=== PATIENT | female | born 1955 ===

== ENCOUNTER 2021-07-03 12:00 | Inpatient (IN) | payer OTHER ==
[~2021-07-03] VITALS: Ht 162.6 cm; Wt 68.0 kg
[2021-07-03] MEDS ORDERED: HORIZANT300 MG PO (14:10)
[2021-07-03] MEDS ORDERED: PREVASTATIN PO (14:12)
[2021-07-03] MEDS ORDERED: CAMBIA50 MG (14:13)
[2021-07-03] MEDS ORDERED: TIADYLT ER120 MG PO (14:13)
[2021-07-03] MEDS ORDERED: TIZA PO (14:14)
[2021-07-03] MEDS ORDERED: [UNRECOGNIZED DRUG - OTHER] PO (14:15)
[2021-07-06] MEDS ORDERED: MEDROLPACK PO (07:18)
[2021-07-06] MEDS ORDERED: DIAZEPAM5 MG PO ×2 (07:18→07:33)
[2021-07-06] MEDS ORDERED: ACETAMINOPHEN-1 EAC2 PO (07:18)
[2021-07-06] MEDS ORDERED: ZOFRAN8 MG PO (07:18)
[2021-07-06] MEDS ORDERED: COLACE100 MG PO (07:19)
== END 2021-07-07 13:00 | disposition home or self-care (01) | DRG 473 ==
LOC: O/R 07-06 05:10 → PED 07-06 05:10 → SURH 07-06 07:00 → PED 07-06 11:47 → SURH 07-06 12:00 → PED 07-07 13:00
PROVIDERS: ADMIT Orthopaedic Surgery Orthopaedic Surgery of the Spine; ATTEND Orthopaedic Surgery Orthopaedic Surgery of the Spine
PROC: 07DS3ZZ Extraction of Vertebral Bone Marrow, Percutaneous Approach (ICD-10-PCS; 2021-07-06)
PROC: 0RG20A0 Fusion of 2 or more Cervical Vertebral Joints with Interbody Fusion Device, Anterior Approach, Anterior Column, Open Approach (ICD-10-PCS; principal; 2021-07-06 07:00)
DX: M50.023 Cervical disc disorder at C6-C7 level with myelopathy (principal)

== ENCOUNTER 2023-07-23 11:45 | Inpatient (IN) | payer OTHER ==
[~2023-07-23] VITALS: Ht 162.6 cm; Wt 43.5 kg
[~2023-07-23 11:45] MED LIST: ACETAMINOPHEN-1 EAC2 PO; CAMBIA50 MG; COLACE100 MG PO; DIAZEPAM5 MG PO; HORIZANT300 MG PO; MEDROLPACK PO; PREVASTATIN PO; TIADYLT ER120 MG PO; TIZA PO; ZOFRAN8 MG PO; [UNRECOGNIZED DRUG - OTHER] PO
[2023-07-23] MEDS ORDERED: HORIZANT600 MG PO (15:53)
[2023-07-23] MEDS ORDERED: LIPITOR40 MG PO (15:54)
[2023-07-30] MEDS ORDERED: PRAVASTATIN SOD40 MG PO (08:00)
[2023-07-30] MEDS ORDERED: ALEVE220 MG (08:04)
[2023-07-30] MEDS ORDERED: ACETAMINOPHEN-1 EAC2 PO (09:18)
[2023-07-30] MEDS ORDERED: MEDROLPACK PO (09:18)
[2023-07-30] MEDS ORDERED: ZOFRAN8 MG PO (09:19)
[2023-07-30] MEDS ORDERED: COLACE100 MG PO (09:19)
[2023-07-30] MEDS ORDERED: AMOX-CLAV 875-1 EACH PO (09:19)
[2023-07-30] MEDS ORDERED: GABAPENTIN100 M2 PO (09:19)
[2023-07-30] MEDS ORDERED: NEURONTIN800 MG PO (09:20)
[2023-07-31 07:45] LABS: HEMATOCRIT 31.9 % (36.0-45.00); HEMOGLOBIN 10.6 g/dL (12.0-15.00); MEAN CORPUSCULAR HEMOGLOBIN 31.1 pg (27.00-32.0); MEAN CORPUSCULAR HGB CONC 33.1 g/dl (32.0-36.0); PLATELET COUNT 132 K/uL (150-450); RED CELL DISTRIBUTION WIDTH 14.9 % (11.5-14.5)
[2023-07-31 08:32] LABS: CALCIUM 7.6 mg/dL (8.5-10.1); CREATININE SERUM 0.38 mg/dL (0.55-1.02); GFR 167.42; POTASSIUM 3.87 mEq/L (3.5-5.1)
== END 2023-08-01 20:17 | DRG 455 ==
LOC: EDSTATUS 11:45 → ADM 11:45 → O/R 07-30 06:10 → SURG 07-30 06:10 → SURH 07-30 11:45 → SURG 07-30 12:07 → SURH 07-31 19:30 → SURG 07-31 20:43
PROVIDERS: ADMIT Orthopaedic Surgery Orthopaedic Surgery of the Spine; ATTEND Orthopaedic Surgery Orthopaedic Surgery of the Spine
PROC: 0SG1071 Fusion of 2 or more Lumbar Vertebral Joints with Autologous Tissue Substitute, Posterior Approach, Posterior Column, Open Approach (ICD-10-PCS; 2023-07-30)
PROC: 0ST20ZZ Resection of Lumbar Vertebral Disc, Open Approach (ICD-10-PCS; 2023-07-30)
PROC: 0QB30ZZ Excision of Left Pelvic Bone, Open Approach (ICD-10-PCS; 2023-07-30)
PROC: 07DR0ZZ Extraction of Iliac Bone Marrow, Open Approach (ICD-10-PCS; 2023-07-30)
PROC: 4A1104G Monitoring of Peripheral Nervous Electrical Activity, Intraoperative, Open Approach (ICD-10-PCS; 2023-07-30)
PROC: XRGC0R7 Fusion of 2 or more Lumbar Vertebral Joints using Custom-Made Anatomically Designed Interbody Fusion Device, Open Approach, New Technology Group 7 (ICD-10-PCS; principal; 2023-07-30 11:45)
DX: M48.062 Spinal stenosis, lumbar region with neurogenic claudication (principal); M51.36 Other intervertebral disc degeneration, lumbar region

== ENCOUNTER 2023-08-19 21:55 | Emergency (ER) | payer OTHER ==
[~2023-08-19] VITALS: Ht 162.6 cm; Wt 67.1 kg
[~2023-08-19 21:55] MED LIST changes: +ALEVE220 MG; +AMOX-CLAV 875-1 EACH PO; +GABAPENTIN100 M2 PO; +HORIZANT600 MG PO; +LIPITOR40 MG PO; +NEURONTIN800 MG PO; +PRAVASTATIN SOD40 MG PO
[2023-08-19 23:25] LABS: HEMATOCRIT 35.3 % (36.0-45.00); HEMOGLOBIN 11.8 g/dL (12.0-15.00); MEAN CELL VOLUME 93.5 fL (80.00-100.00); MEAN CORPUSCULAR HEMOGLOBIN 31.2 pg (27.00-32.0); MEAN CORPUSCULAR HGB CONC 33.4 g/dl (32.0-36.0); PLATELET COUNT 206 K/uL (150-450); RED BLOOD COUNT 3.78 M/uL (4.00-6.00); RED CELL DISTRIBUTION WIDTH 15.6 % (11.5-14.5)
[2023-08-20 00:31] LABS: ALBUMIN 3.1 gm/dL (3.4-5.0); BILIRUBIN TOTAL 0.33 mg/dL (0.3-1.2); CALCIUM 8.8 mg/dL (8.5-10.1); CREATININE SERUM 0.6 mg/dL (0.55-1.02); POTASSIUM 3.96 mEq/L (3.5-5.1); TOTAL PROTEIN 6.1 gm/dL (6.4-8.2)
[2023-08-20 00:32] LABS: GFR 98.83
== END 2023-08-20 00:31 | disposition home or self-care (01) ==
LOC: ER 21:55
PROVIDERS: General Practice
DX: M54.9 Dorsalgia, unspecified (principal); R11.2 Nausea with vomiting, unspecified
CPT/HCPCS: 36415; 96365; 96372; 99284; J1885; J2405; J3301; J3490

== ENCOUNTER 2024-10-21 12:45 | Inpatient (IN) | payer OTHER ==
[~2024-10-21] VITALS: Ht 162.6 cm; Wt 66.7 kg
[2024-10-27] MEDS ORDERED: CEFAZOLIN SODIUM 1,000 MG VIAL ONE (14:42)
[2024-10-27] MEDS ORDERED: METHYLPREDNISOLONE SOD SUCC 125 MG VIAL ONE (15:09)
[2024-10-27] MEDS ORDERED: METHYLPREDNISOLONE ACETATE 80 MG/ML VIAL ONE (15:09)
[2024-10-27] MEDS ORDERED: HEMOSTATIC MATRIX WITH THROMBIN KIT TOP ONE (15:10)
[2024-10-27] MEDS ORDERED: VANCOMYCIN HCL 1,000 MG VIAL ONE (15:10)
[2024-10-27] MEDS ORDERED: MEDROLPACK PO (15:11)
[2024-10-27] MEDS ORDERED: COLACE100 MG PO (15:11)
[2024-10-27] MEDS ORDERED: ACETAMINOPHEN-1 EAC2 PO (15:11)
[2024-10-27] MEDS ORDERED: ONDANSETRON ODT8 MG PO (15:11)
[2024-10-27] MEDS ORDERED: MORPHINE SULFATE 4 MG/ML VIAL IV ONE ×2 (17:30→18:00)
[2024-10-27] MEDS ORDERED: ACETAMINOPHEN 500 MG GEL..CAP PO SCH (20:00)
[2024-10-27] MEDS ORDERED: PROMETHAZINE HCL 50 MG/ML AMPUL IM PRN (20:45)
[2024-10-27] MEDS ORDERED: ENALAPRILAT DIHYDRATE 1.25 MG/ML VIAL IV PRN (20:45)
[2024-10-27] MEDS ORDERED: 0.9 % SODIUM CHLORIDE 1,000 ML IV SCH (20:45)
[2024-10-27] MEDS ORDERED: MORPHINE SULFATE 4 MG/ML CARTRIDGE IV SCH (21:00)
[2024-10-27 22:13] VITALS: BP 131/69; O2SAT 97
[2024-10-27 23:30] VITALS: BP 132/73; O2SAT 98
[2024-10-28] MEDS ORDERED: SODIUM CHLORIDE 0.45 % 1,000 ML IV SCH
[2024-10-28] MEDS ORDERED: CEFAZOLIN SODIUM 1,000 MG in 0.9 % SODIUM CHLORIDE 50 ML IV SCH (01:00)
[2024-10-28 04:30] VITALS: BP 145/72; O2SAT 96
[2024-10-28] MEDS ORDERED: OxyCODONE HCL 5 MG TABLET (ROXICODONE) PO PRN (06:01)
[2024-10-28 08:28] VITALS: BP 132/68; O2SAT 98
[2024-10-28] MEDS ORDERED: DOCUSATE SODIUM 100MG CAP PO SCH (09:00)
[2024-10-28] MEDS ORDERED: METHYLPREDNISOLONE SOD SUCC 125 MG VIAL IV SCH (09:00)
[2024-10-28] MEDS ORDERED: TAMSULOSIN HCL 0.4 MG CAP PO SCH (09:00)
[2024-10-28] MEDS ORDERED: FAMOtidine 20 MG TABLET PO SCH (09:00)
[2024-10-28] MEDS ORDERED: VANCOMYCIN HCL 1,000 MG VIAL IV SCH (09:00)
== END 2024-10-28 14:13 | disposition home or self-care (01) | DRG 473 ==
LOC: ADM 12:45 → O/R 10-27 07:00 → SURH 10-27 12:45 → EDSTATUS 10-27 12:45 → CIR.AMB 10-27 12:45 → PED 10-27 20:19
PROVIDERS: ADMIT Orthopaedic Surgery Orthopaedic Surgery of the Spine; ATTEND Orthopaedic Surgery Orthopaedic Surgery of the Spine
PROC: 0RT30ZZ Resection of Cervical Vertebral Disc, Open Approach (ICD-10-PCS; 2024-10-27)
PROC: 0PB40ZZ Excision of Thoracic Vertebra, Open Approach (ICD-10-PCS; 2024-10-27)
PROC: 07DS0ZZ Extraction of Vertebral Bone Marrow, Open Approach (ICD-10-PCS; 2024-10-27)
PROC: 4A1104G Monitoring of Peripheral Nervous Electrical Activity, Intraoperative, Open Approach (ICD-10-PCS; 2024-10-27)
PROC: 0RG10A0 Fusion of Cervical Vertebral Joint with Interbody Fusion Device, Anterior Approach, Anterior Column, Open Approach (ICD-10-PCS; principal; 2024-10-27 13:00)
DX: M50.01 Cervical disc disorder with myelopathy, high cervical region (principal); M48.02 Spinal stenosis, cervical region